=== PATIENT | male | born 1995 | race African-American/Black ===

== ENCOUNTER 2016-12-30 17:42 | Emergency (ER) | payer OTHER ==
[~2016-12-30 17:42] MED LIST: DICLOFENAC PO; MOTRIN600 MG PO; NAPROSYN375 MG PO; NO MEDICATIONS
== END 2016-12-30 20:33 | disposition home or self-care (01) ==
LOC: SED 17:42
DX: S05.02XA Injury of conjunctiva and corneal abrasion without foreign body, left eye, initial encounter (principal); Z23 Encounter for immunization; X58.XXXA Exposure to other specified factors, initial encounter; Y92.9 Unspecified place or not applicable
CPT/HCPCS: 90471; 90715; 99283